=== PATIENT | male | born 2000 | race Caucasian/White ===

== ENCOUNTER 2023-05-02 20:37 | Emergency (ER) | payer MEDICAID ==
[~2023-05-02] VITALS: Ht 180.3 cm; Wt 136.1 kg
[2023-05-02 20:54] VITALS: BP_SYST 143; PULSE 87; RESP 19; TEMP 97.8; O2SAT 97
[2023-05-02] MEDS ORDERED: IBUPROFEN 600 MG TABLET PO ONE (23:30)
[2023-05-03] VITALS: BP_SYST 138; PULSE 80; RESP 17; TEMP 98; O2SAT 98
== END 2023-05-03 | disposition home or self-care (01) ==
LOC: SED 20:37
DX: S09.90XA Unspecified injury of head, initial encounter (principal); S80.911A Unspecified superficial injury of right knee, initial encounter; Z79.899 Other long term (current) drug therapy; W01.0XXA Fall on same level from slipping, tripping and stumbling without subsequent striking against object, initial encounter; Y93.89 Activity, other specified; Y92.89 Other specified places as the place of occurrence of the external cause; Y99.8 Other external cause status
CPT/HCPCS: 99282